=== PATIENT | female | born 1940 | race Caucasian/White ===

== ENCOUNTER → 2024-05-14 | Outpatient (CLI) | payer MEDICARE, SELFPAY ==
--- NOTE | 2024-05-14 08:00 | XR_ITS ---
Examination: CT chest, without intravenous contrast. Sagittal and coronal 2-D reconstructions. Exam date and time: May 14, 2024 0810 hours INDICATIONS: Diagnosis solitary pulmonary nodule, multiple pulmonary nodules on CT chest study March 18, 2023 CTDI:vol (mGy) 8.91 DLP: (mGycm) 321 Technique: Multiple 3.0 mm axial sections of the chest to been obtained. Bone and lung density settings are obtained. Sagittal and coronal 2-D reconstructions have been obtained. Low dose protocols were performed. One or more of the following dose reduction techniques were used; automated exposure control, adjustment of the mA and/or KV according to patient size, use of iterative reconstruction technique. Findings: No thoracic aortic aneurysm dilatation Pulmonary artery segments are not enlarged No paratracheal tracheobronchial or bronchopulmonary adenopathy Stable bilateral pulmonary nodules, the largest 14 mm in the left lower lobe No new pulmonary nodules No pneumonia or pulmonary edema or pleural disease No visualized liver or splenic lesions No pancreatic mass Atrophic scarred right kidney IMPRESSION: Stable bilateral pulmonary nodules, the largest 14 mm in the left lower lobe No new pulmonary nodules
== END | disposition home or self-care (01) ==
LOC: CCTX 07:58
PROVIDERS: Referring Provider Physician Assistant; Visit Provider Physician Assistant
DX: R91.8 Other nonspecific abnormal finding of lung field (principal)
CPT/HCPCS: 71250